=== PATIENT | male | born 1980 | race Caucasian/White ===

== ENCOUNTER 2017-05-14 11:17 | Emergency (ER) | payer BC ==
[2017-05-14] MEDS ORDERED: Orphenadrine 100 MG Tab.ER PO STA (12:37)
--- NOTE | 2017-05-14 12:49 | EDM.PDOC ---
ED HPI GENERAL MEDICAL PROBLEM - General Chief Complaint: Back Pain or Injury Stated Complaint: L SHOULDER INJURY Time Seen by Provider: 05/14/17 11:34 Source of Information: Reports: Patient History Limitations: Reports: No Limitations - History of Present Illness INITIAL COMMENTS - FREE TEXT/NARRATIVE: The patient states that he has had left shoulder pain on and off for the past 4 months. He has had 2 prior surgeries secondary to multiple shoulder dislocations. He states that he was carrying some slat wall on his left shoulder yesterday, when some wind caught the boards, causing extension of his left shoulder. He developed left scapular pain, made worse if he puts his head back or lies on his back. No direct injury to the shoulder. The patient has been using a TENS unit. The patient does not have a PCP. He does not recall who his orthopedic surgeon is. Left Posterior Shoulder Pain Score (Numeric/FACES): 8 - Related Data Allergies Allergy/AdvReac Type Severity Reaction Status Date / Time No Known Allergies Allergy Verified 05/14/17 11:26 Home Meds: Home Meds Orphenadrine [Norflex] 1 tab PO Q12H PRN #14 tab.er 05/14/17 [Rx] Past Medical History - Past Surgical History GI Surgical History: Reports: Hernia, Abdominal Musculoskeletal Surgical History: Reports: Arthroscopic Knee, Shoulder Surgery ( left, secondary to multiple dislocations, x 2) Social & Family History - Tobacco Use Smoking Status *Q: Never Smoker - Caffeine Use Caffeine Use: Reports: Coffee, Soda - Recreational Drug Use Recreational Drug Use: No Review of Systems - Review of Systems Review Of Systems: ROS reveals no pertinent complaints other than HPI. ED EXAM, GENERAL - Physical Exam Exam: See Below Exam Limited By: No Limitations General Appearance: Alert, WD/WN, No Apparent Distress Back Exam: Other (No visible abnormality to the left scapular area, such as swelling, erythema, ecchymosis, or abrasion. The patient reports mild reproducible tenderness to palpation of the left infraspinatus muscle. He is more tender to palpation of the subscapularis muscle, when his arm is pulled behind his back. No tenderness or limitation of range of motion of the left shoulder itself.) Course - Vital Signs Last Recorded V/S: Last Vital Signs Temp 36.5 C 05/14/17 11:30 Pulse 66 05/14/17 11:30 Resp 20 05/14/17 11:30 BP 116/76 05/14/17 11:30 Pulse Ox 99 05/14/17 11:30 - Orders/Labs/Meds Meds: Medications Discontinued Medications Generic Name Dose Route Start Last Admin Trade Name Claudia PRN Reason Stop Dose Admin Orphenadrine Citrate 100 mg 05/14/17 12:37 05/14/17 12:56 Norflex PO 05/14/17 12:38 100 mg ONETIME STA Administration - Re-Assessments/Exams Free Text/Narrative Re-Assessment/Exam: 05/14/17 12:43 On examination of the patient's left scapula, some of the pain is reproducible with palpation of the subscapularis, with less tenderness to the infraspinatus. While a torn ligament is possible, I suspect that the patient is suffering from a muscle spasm. I propose that we treat patient with a muscle relaxant, and that if his symptoms do not improve over the next few days, that he follow-up with Dr. Erickson, who could order a MRI if he felt it appropriate. It was explained to the patient that MRIs cannot be ordered from the ED. The patient is agreeable. Departure - Departure Time of Disposition: 12:49 Disposition: Home, Self-Care 01 Condition: Good Clinical Impression: Muscle spasm of back - Discharge Information Prescriptions: Orphenadrine [Norflex] 1 tab PO Q12H PRN #14 tab.er PRN Reason: Muscle Spasm Instructions: Muscle Cramps and Spasms, [id number] Referrals: PCP,None [Primary Care Provider] - Luís Erickson MD [Physician] - Forms: ED Department Discharge Additional Instructions: You were seen in the emergency room for left scapular pain. On examination, you are MOST LIKELY suffering from a muscle spasm. You have been started on the muscle relaxant Norflex. A prescription for this has been sent to [facility], located in the [facility] across [address] from the hospital. Take one tablet every 12 hours, as prescribed. You may also take [id number] ibuprofen, 2-3 tablets (400-600 mg) every 8 hours, with food. If your symptoms persist for a few days, please follow-up with the orthopedic surgeon Dr. Erickson. If any other problems, please do not hesitate to return to the ER.
== END 2017-05-14 13:10 | disposition home or self-care (01) ==
LOC: JD.ED 11:17
DX: M62.830 Muscle spasm of back (principal)
CPT/HCPCS: 99283; A9270